=== PATIENT | male | born 1960 | race Caucasian/White ===

== ENCOUNTER 2019-08-07 11:53 | Inpatient (IN) ==
[~2019-08-07 11:53] MED LIST: ZOSYN 3.375 GM in NS 50 ML IV ONE
[2019-08-07 13:25] LABS: URINE SOURCE CLEAN CATCH
[2019-08-07 13:31] LABS: BILIRUBIN URINE NEGATIVE (NEGATIVE); BLOOD URINE NEGATIVE (NEGATIVE); COLOR YELLOW; GLUCOSE URINE NEGATIVE (NEGATIVE); KETONE URINE 20 mg/dL (NEGATIVE); LEUKOCYTES URINE NEGATIVE (NEGATIVE); NITRITE URINE NEGATIVE (NEGATIVE); PH URINE 6.5; PROTEIN URINE TRACE mg/dL (NEGATIVE); TURBIDITY URINE CLEAR (CLEAR); UR EPITHELIAL CELLS <10 /HPF (<10); URINE BACTERIA NEGATIVE /HPF; URINE RBC <10 /HPF (<10); URINE WBC <10 /HPF (<10); UROBILINOGEN URINE 4 mg/dL (NORMAL)
[2019-08-07 13:49] LABS: BASO# 0.06 X1000 (0.0-0.2); BASO% 0.5 % (0.0-0.8); EOS# 0.02 X1000 (0.0-0.7); EOS% 0.2 % (0.0-10.0); HEMATOCRIT 44.4 % (42.0-52.0); HEMOGLOBIN 14.5 g/dL (14.0-18.0); IMM GRAN# 0.02 X1000 (0.0-0.04); IMM GRAN% 0.2 % (0.0-0.5); LYMPH# 0.82 X1000 (1.2-3.4); LYMPH% 6.3 % (20.5-51.1); MCH 27.7 PG (27-31); MCHC 32.7 g/dL (33-37); MCV 84.9 FL (81-99); MONO# 0.52 X1000 (0.11-0.59); MPV 10.2 FL (7.4-10.4); NEUT# 11.48 X1000 (1.4-6.5); NEUT% 88.8 % (42.2-75.2); PLT 252 X1000 (130-400); RBC 5.23 XMIL (4.7-6.1); RDW 13.6 % (11.5-14.5); WBC 12.92 X1000 (4.8-10.8)
[2019-08-07 14:04] LABS: AGAP 9; ALB/GLOB RATIO 1.5; ALBUMIN 4.1 g/dL (3.5-5.0); ALKALINE PHOSPHATASE 73 U/L (32-122); AMYLASE 56 U/L (20-200); BUN 18 mg/dL (8-22); CALCIUM 9.1 mg/dL (8.8-10.2); CHLORIDE 103 mmol/L (98-107); COSMO 281; CREATININE 1.1 mg/dL (0.7-1.2); ESTIMATED GFR > 60; GLUCOSE 135 mg/dL (70-104); GOT 16 U/L (10-34); GPT 17 U/L (10-44); LIPASE 20 U/L (13-60); POTASSIUM 4.4 mmol/L (3.5-5.1); SODIUM 139 mmol/L (136-145); TCO2 27 mmol/L (25-35); TOTAL BILIRUBIN 0.26 mg/dL (0.20-1.00); TOTAL PROTEIN 6.9 g/dL (6.3-8.3)
[2019-08-07] MEDS ORDERED: ZOFRAN IV ONE (14:25)
[2019-08-07] MEDS ORDERED: DILAUDID IV ONE (14:25)
[2019-08-07] MEDS ORDERED: NS 1,000 ML IV ONE (14:27)
--- NOTE | 2019-08-07 15:07 | Diag Imaging Result Doc PS360 ---
CT ABD/PELVIS W/IV CONT ONLY - 08/07/2019 INDICATION: abdo pain COMPARISON: None FINDINGS: The lung bases are clear and the heart size is normal. There is a relatively large rim calcified gallstone in the gallbladder. This measures 3 x 2.3 cm. There is some questionable gallbladder wall thickening. No biliary dilation. All the other abdominal organs are normal. There is significant diverticulosis of the descending and sigmoid colon. No bowel obstruction or inflammation. Normal appendix. Urinary bladder, prostate, and rectum are normal. Bones are intact and well mineralized. IMPRESSION: 1. Large gallstone in the gallbladder. Questionable gallbladder wall thickening. Recommend a gallbladder ultrasound. 2. Diverticulosis coli. This exam was performed using automated exposure control, adjustment of mA or kV according to patient size, and/or use of iterative reconstruction technique Electronically signed by Garry Ruiz 08/07/2019 3:04 PM
--- NOTE | 2019-08-07 15:52 | Diag Imaging Result Doc PS360 ---
US GB < RUQ (LIMITED) - 08/07/2019 INDICATION: RUQ pain TECHNIQUE: Jarrett scale, color Doppler, and duplex evaluation of the abdomen was performed. Standard protocol. COMPARISON: None FINDINGS: The liver appears normal in size and echotexture. No focal masses are appreciated. The IVC and aorta appear normal. The pancreas is unremarkable. The gallbladder contains layering sludge and multiple gallstones including nonmobile a 1.6 cm stone within the gallbladder neck. No sonographic Al's sign was elicited. No pericholecystic fluid or gallbladder wall thickening.. The common bile duct measures 4 mm. The portal vein is patent with hepatopetal flow. The right kidney appears normal. There is no hydronephrosis. IMPRESSION: Cholelithiasis and gallbladder sludge including a nonmobile 1.6 cm calculus within the gallbladder neck. No sonographic evidence for acute cholecystitis. Electronically signed by Brooklyn Amaral 08/07/2019 3:49 PM
--- NOTE | 2019-08-07 16:50 | PROVIDER DOCUMENTATION ---
This chart was entered by Tiarra Ordoñez Scribe, acting as scribe for Buck Euceda MD. HPI-Abdominal Pain/GI Problem - General Chief Complaint: Abdominal Pain Stated Complaint: VOMITING BACK STOMACH PAIN Time Seen by Provider: 08/07/19 14:09 Source: patient Allergies/Adverse Reactions: Patient Allergies Allergy/AdvReac Type Severity Reaction Status Date / Time No Known Allergies Allergy Verified 08/07/19 15:39 Home Medications: Home Medication List Medication Instructions Recorded Confirmed Last Taken Type NK [No Home Medications] 08/07/19 08/07/19 Unknown History - History of Present Illness-ABD Nature of Presenting Problems: 59 yowm presents to the ed with c/o abdominal pain. pt was seen recently and told to f/u due to gallstone but never f/u. pt sts woke this am with severe abd pain with n/v x6 Abdominal Pain Onset Location: reports: RUQ, RLQ Quality of Pain: reports: aching Severity in ED: reports: moderate Onset/Duration: reports: this morning (but had similar episode recently) Timing: reports: still present Activities at Onset: reports: eating Exposure to sick contacts?: No Modifying Factors: worse with: eating Associated Symptoms: reports: nausea, vomiting. denies: back/neck pain, chest pain, diaphoresis, diarrhea, fever/chills, shortness of breath Last BM: last night Dark Stools Present?: reports: none noticed Rectal Bleeding: reports: none # of Diarrhea Episodes: 0 Rectal Pain: reports: none # of Vomiting Episodes: 6 Emesis Description: reports: other (yellow) Bruising or Bleeding Gums?: No Similar Symptoms Previously?: Yes Recently seen or treated by another doctor?: Yes (er ) Review of Systems - Adult - REVIEW OF SYSTEMS - ADULT Constitutional: denies: chills, fever Eyes: reports: no symptoms reported Ears, Nose, Mouth & Throat: reports: no symptoms reported Cardiovascular: denies: chest pain, palpitations Respiratory: denies: shortness of breath, wheezing Gastrointestinal: reports: see HPI, abdominal pain, nausea, vomiting. denies: diarrhea Genitourinary: reports: no symptoms reported Musculoskeletal: denies: back pain, neck pain Integumentary: reports: no symptoms reported Neurological: reports: no symptoms reported Psychiatric: reports: no symptoms reported Endocrine: reports: no symptoms reported Hematologic/Lymphatic: reports: no symptoms reported Allergic/Immunologic: reports: no symptoms reported All Other Systems: Reviewed and Negative Past History - Adult - PAST MEDICAL HISTORY-ADULT Review of Records: reports: Old Records Reviewed, Nursing Assessment Review, Medications Reviewed, Social history reviewed & non-contributory. Major Childhood Illnesses: reports: denies history Cardiovascular: reports: CAD, HTN Respiratory: reports: denies history Gastrointestinal: reports: GERD, other (gallstone) Genitourinary: reports: denies history Musculoskeletal: reports: denies history Neurological: reports: denies history Endocrine/Immune: reports: denies history Other Conditions: reports: denies history - PRIOR SURGERIES/PROCEDURES Surgical/Procedure History: reports: reviewed, not pertinent - IMMUNIZATION STATUS Childhood Immunizations: See Nurse Assessment Flu Vaccine: See Nurse Assessment - FAMILY HISTORY Family History: reviewed, not pertinent - SOCIAL HISTORY Smoking: denies Substance Use: denies Living Situation: family Physical Exam-General - PHYSICAL EXAM-ADULT Initial Vital Signs Reviewed: Yes - CONSTITUTIONAL General Appearance: alert, mild distress - EYES Eyes: PERRL/EOMI, pink conjunctivae - HEAD, EARS, NOSE, MOUTH & THROAT HENMT: moist mucous membranes - NECK Neck: non-tender, full range of motion, supple - RESPIRATORY Respiratory: chest non-tender, lungs clear, normal breath sounds - CARDIOVASCULAR Cardiovascular: normal peripheral pulses, bradycardia (56) - CHEST (BREASTS) Chest/Breast: deferred - GASTROINTESTINAL (ABDOMEN) Abdominal Exam: soft, guarding, tenderness (RUQ RLQ), Al's sign - GENITOURINARY Male Genitalia: deferred Rectal Exam: deferred Hemoccult Exam: deferred - MUSCULOSKELETAL Back Exam: normal inspection, no CVA tenderness, no vertebral tenderness Extremity: normal range of motion, non-tender, normal gait, normal inspection - SKIN Integumentary: normal color, normal turgor, warm/dry - NEUROLOGIC Neurologic: grossly normal - PSYCHIATRIC Psych/Mental Status: normal mood/affect, normal thought content, normal thought process, oriented x 3 Progress - PLAN OF CARE/RESULTS Progress/Plan/Lab Results: Vital Signs - 8 hr 08/07/19 12:06 08/07/19 13:36 Temperature 97.8 F Pulse Rate 56 L 41 L Respiratory Rate 16 14 Blood Pressure 188/97 190/88 O2 Sat by Pulse Oximetry 99 100 Laboratory Results - last 24 hr 08/07/19 08/07/19 08/07/19 13:10 13:35 13:35 WBC 12.92 H RBC 5.23 Hgb 14.5 Hct 44.4 MCV 84.9 MCH 27.7 MCHC 32.7 L RDW Std Deviation 13.6 Plt Count 252 MPV 10.2 Immature Gran % (Auto) 0.2 Neut % (Auto) 88.8 H Lymph % (Auto) 6.3 L [place] % (Auto) 4.0 Eos % (Auto) 0.2 Baso % (Auto) 0.5 Immature Gran # (Auto) 0.02 Neut # (Auto) 11.48 H Lymph # (Auto) 0.82 L [place] # (Auto) 0.52 Eos # (Auto) 0.02 Baso # (Auto) 0.06 Sodium 139 Potassium 4.4 Chloride 103 Carbon Dioxide 27 Anion Gap 9 BUN 18 Creatinine 1.1 Estimated GFR/1.73 m2 > 60 BUN/Creatinine Ratio 16 Glucose 135 H Calculated Osmolality 281 Calcium 9.1 Total Bilirubin 0.26 AST 16 ALT 17 Alkaline Phosphatase 73 Total Protein 6.9 Albumin 4.1 Globulin 2.8 Albumin/Globulin Ratio 1.5 Amylase 56 Lipase 20 Urine Source CLEAN CATCH Urine Color YELLOW Urine Turbidity CLEAR Urine pH 6.5 Ur Specific [place] 1.030 Urine Protein TRACE A Ur Glucose (Stick) NEGATIVE Ur Ketones (Stick) 20 A Urine Blood NEGATIVE Urine Nitrite NEGATIVE Urine Bilirubin NEGATIVE Urobilinogen Dipstick 4 A Urine Leukocytes NEGATIVE Urine WBC (Auto) <10 Urine RBC (Auto) <10 U Epithel Cells (Auto) <10 Urine Bacteria (Auto) NEGATIVE Orders Category Date Time Status Saline Loc DIRECTED Care 08/07/19 12:10 Active NPO Diet 08/07/19 12:[address] ABD/PELVIS W/IV CONT ONLY [CT] Stat Exams 08/07/19 14:09 Ordered US GB < RUQ (LIMITED) [US] Stat Exams 08/07/19 14:09 Ordered AMYLASE [CHEM] Stat Lab 08/07/19 13:35 Completed CBC WITH ELECTRONIC DIFF [HEME] Stat Lab 08/07/19 13:35 Completed COMPREHENSIVE METABOLIC PANEL [CHEM] Stat Lab 08/07/19 13:35 Completed LIPASE [CHEM] Stat Lab 08/07/19 13:35 Completed TROPONIN T HIGH SENSITIVITY Stat Lab 08/07/19 14:26 Uncollected URINALYSIS W/POSS RFLX CULT [URINALYSIS] Stat Lab 08/07/19 13:10 Completed 0.9% Sodium Chloride Inj [Ns] 1,000 ml Med 08/07/19 14:27 Active IV 999 mls/hr Hydromorphone [Dilaudid] Med 08/07/19 14:25 Discontinued 1 mg IV NOW ONE Ondansetron [Zofran] Med 08/07/19 14:25 Discontinued 4 mg IV NOW ONE Result Diagrams: 08/07/19 13:35 08/07/19 13:35 - REASSESSMENT Reassessment #1 Time Reassessed: 16:02 Status: improving Reassessment #2 Time Reassessed: 16:34 (pt will go to sx with dr kingston) Status: unchanged Reassessment Comment: last meal this am for breakfast - CT/MRI 1 CT Study: Abdomen, Pelvis Impression: See EMR Report (CT ABD/PELVIS W/IV CONT ONLY - 08/07/2019 INDICATION: abdo pain COMPARISON: None FINDINGS: The lung bases are clear and the heart size is normal. There is a relatively large rim calcified gallstone in the gallbladder. This measures 3 x 2.3 cm. There is some questionable gallbladder wall thickening. No biliary dilation. All the other abdominal organs are normal. There is significant diverticulosis of the desc ending and sigmoid colon. No bowel obstruction or inflammation. Normal appendix. Urinary bladder, prostate, and rectum are normal. Bones are intact and well mineralized. IMPRESSION: 1. Large gallstone in the gallbladder. Questionable gallbladder wall thickening. Recommend a gallbladder ultrasound. 2. Diverticulosis coli. This exam was performed using automated exposure control, adjustment of mA or kV according to patient size, and/or use of iterative reconstruction technique Electronically signed by Garry Ruiz 08/07/2019 3:04 PM 08/07/19 1503 Interpreting Physician: Garry Ruiz MD Dictated Date/Time: 08/07/19 1502 cc: Buck Euceda MD; None,PCP) - CONSULTS/PCP/HOSPITALIST Notification #1 *Consult/PCP/Hospitalist*: dr kingston sx Time Discussed: 16:33 Reason/Comments: phone consult, asked for Zosyn Consult Disposition: Admit Departure - Departure Date of Disposition Decision: 08/07/19 Time of Disposition Decision: 16:49 DIAGNOSIS: Cholecystitis, Cholelithiasis Disposition: ADMITTED INPATIENT 09 Certified Medical Emergency: Emergent Condition: Fair Referrals and Follow-Ups: None,PCP [Primary Care Provider] - - Critical Care Note This patient required my direct & personal management of CC.: No Attestation - Physician/ CHANEL Attestation Patient care was provided by Advanced Practice Provider:: No The physician spent face to face time with patient:: Yes Advanced Practice Provider documentation review:: Supervising physician onsite and consulted in the evaluation and care of this patient. The physician did have a face to face encounter with the patient. This chart was documented by the indicated scribe, (Tiarra Ordoñez Scribe) and accurately reflects the services I performed and decisions made by me, Buck Euceda MD, as attested by the provider's signature.
[2019-08-07] MEDS ORDERED: ZOSYN 3.375 GM in NS 50 ML IV ONE ×2 (16:51→20:00)
[2019-08-07] MEDS ORDERED: DILAUDID IM PRN (17:43)
[2019-08-07] MEDS ORDERED: DILAUDID IV PRN (17:56)
[2019-08-07] MEDS: ZOFRAN IV PRN ×2 (18:25→23:57)
[2019-08-07] MEDS: MORPHINE IV PRN (18:25)
[2019-08-07] MEDS: LR 1,000 ML IV SCH (21:06)
--- NOTE | 2019-08-07 22:54 | HISTORY AND PHYSICAL ---
ADMITTING DIAGNOSIS: Cholecystitis. HISTORY OF PRESENT ILLNESS: A 59-year-old gentleman presenting with abdominal pain, nausea, and vomiting starting this morning, epigastric and right upper quadrant. He has never had pain like this before. He had a CT scan done in the emergency department that showed possible cholecystitis and ultrasound that showed possible cholecystitis. He has been admitted and started on antibiotics. The pain medicine has made it a little bit better since he has been admitted. PAST MEDICAL HISTORY: History of gallstones. PAST SURGICAL HISTORY: None. SOCIAL: Nonsmoker. HOME MEDICATIONS: None. ALLERGIES: None. FAMILY HISTORY: Reviewed with the patient and noncontributory. REVIEW OF SYSTEMS: A full 14 systems reviewed are negative except those specified in HPI. PHYSICAL EXAMINATION: VITAL SIGNS: Patient is currently afebrile. His vital signs are stable. GENERAL: No acute distress. Resting comfortably. male, looks stated age. HEENT: Normocephalic, atraumatic. Pupils equal, round, reactive to light. Mucous membranes moist. Oropharynx benign. NECK: Supple. Trachea midline. CARDIOVASCULAR: Regular rate and rhythm. LUNGS: Grossly clear. ABDOMEN: Soft tender to palpation in the right upper quadrant and epigastric. No peritoneal signs. EXTREMITIES: Moves all extremities. NEUROLOGIC: Grossly intact. SKIN: No signs of jaundice. VASCULAR: All extremities perfused. LABORATORY: Reviewed. Of note his white blood cell count of slightly elevated. Bilirubin, AST, ALT and alkaline phosphatase are all normal. CT scan independently reviewed, ultrasound independently reviewed and noted above. ASSESSMENT AND PLAN: A 59-year-old with possible cholecystitis. Cholecystitis. At this time, we will plan on admission. We will give him IV fluids and antibiotics. We will resuscitate him through the night and plan on surgical intervention in the morning. Discussed with him the risks, benefits, and alternatives of laparoscopic cholecystectomy. The risks including, but not limited to bleeding, infection, risk of anesthesia, risk of common bile duct injury and bile leak, and risk of injury to other organs discussed the patient. He voiced understanding wished to proceed with the procedure. We will plan on doing it tomorrow. cc: Jg Wade MD
[2019-08-07] MEDS ORDERED: PROTONIX IV SCH (23:45)
[2019-08-07] MEDS ORDERED: SODIUM CHLORIDE 0.9% INJ SCH (23:45)
[2019-08-07] MEDS: ZOSYN 2.25 GM in NS 50 ML IV SCH (23:58)
[2019-08-07] MEDS: APRESOLINE IV SCH (23:58)
[2019-08-08] MEDS: MORPHINE IV PRN (00:26)
[2019-08-08] MEDS: APRESOLINE IV SCH ×2 (05:45→12:02)
[2019-08-08] MEDS: ZOSYN 2.25 GM in NS 50 ML IV SCH ×2 (07:06→12:12)
[2019-08-08] MEDS: LR 1,000 ML IV SCH (07:09)
[2019-08-08 07:27] LABS: BASO# 0.04 X1000 (0.0-0.2); BASO% 0.3 % (0.0-0.8); EOS# 0.01 X1000 (0.0-0.7); EOS% 0.1 % (0.0-10.0); HEMOGLOBIN 13.9 g/dL (14.0-18.0); IMM GRAN# 0.03 X1000 (0.0-0.04); IMM GRAN% 0.2 % (0.0-0.5); LYMPH# 1.18 X1000 (1.2-3.4); LYMPH% 8.3 % (20.5-51.1); MCH 27.6 PG (27-31); MCHC 32.3 g/dL (33-37); MCV 85.3 FL (81-99); MONO# 1.04 X1000 (0.11-0.59); MONO% 7.3 % (1.7-9.3); MPV 10.6 FL (7.4-10.4); NEUT# 11.91 X1000 (1.4-6.5); NEUT% 83.8 % (42.2-75.2); PLT 237 X1000 (130-400); RBC 5.04 XMIL (4.7-6.1); RDW 13.7 % (11.5-14.5); WBC 14.21 X1000 (4.8-10.8)
[2019-08-08 07:31] LABS: INR 1.03; PROTIME 13.6 Seconds (11.0-16.0)
--- NOTE | 2019-08-08 07:51 | CONSULTATION ---
DATE OF CONSULTATION: 08/07/2019 PRIMARY CARE PHYSICIAN: Julio Cesar Ramirez MD of [place], [place]. CONSULTING SURGEON: Dr. Jg Wade. REASON FOR CONSULTATION: Medical management. HISTORY OF PRESENT ILLNESS: Mr. Hernandez is a 59-year-old, male, who presents today to with past medical history of hypertension, bradycardia, and jonathan cone dystrophy. The patient presents to the ER today, states that he did wake up this morning with severe epigastric pain, nausea, vomiting, mild chest pain, and chills. The patient states he vomited greater than 6 times. He subsequently decided to come to the ER at this time. The patient states he was recently diagnosed with gallstones greater than 1 month ago. The patient does deny any cough, congestion, headaches, dizziness, excessive thirst, dysuria, palpitations, orthopnea, PND, dyspnea, melena, diarrhea, constipation, dysuria, hematuria, muscle pain or weakness, syncope, or any other pertinent symptoms at this time. REVIEW OF SYSTEMS: A 10 point review of systems has been obtained and all are negative except what is stated above in the HPI. PAST MEDICAL HISTORY: 1. Hypertension. 2. Bradycardia. 3. Jonathan cone dystrophy. PAST SURGICAL HISTORY: 1. Left wrist surgery. 2. Tonsillectomy. FAMILY HISTORY: Mother has diabetes. Father has prostate cancer and some type of lymphoma. Patient does have a significant history of thyroid disease in his family history. SOCIAL HISTORY: The patient does live in [place], [place]. He is here visiting some family members for a . 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 He just recently started smoking 4 to 5 years ago, and he smokes 3/4 pack of cigarettes per day. He does drink occasional alcohol. He denies any illicit drug use. He denies the use of cane or a walker, CPAP or BiPAP use. ALLERGIES: No known drug allergies. HOME MEDICATIONS: Vitamin B12, unknown amount daily. PHYSICAL EXAMINATION: Vital Signs: Temperature 98.4 degrees, pulse rate 48, respiratory rate 20, blood pressure 198/90, O2 saturation 96% on room air. General: This is a 59-year-old, male. He is lying in the hospital bed. He is well nourished and well developed. He is in no acute distress at present time. HEENT: Atraumatic, normocephalic. Pupils equal, round, react to light. Mucous membranes are dry. Neck: Supple. No lymphadenopathy. Trachea midline. No JVD. CV: Regular rate and rhythm. No murmurs, gallops, or rubs appreciated. Respiratory: Lung sounds clear. Equal chest excursion. Respirations nonlabored. No accessory muscle usage. GI: Abdomen is tender. It is nondistended. Bowel sounds are present x4. : No CVA tenderness noted. The patient is voiding without difficulty. Neurologic: The patient is awake, alert, and oriented, able to follow all my commands appropriately. Musculoskeletal: Full distal strength noted. No abnormalities. No deformities. Extremities: No clubbing, no cyanosis, no edema. DP and PT pulses are present and palpable. Skin: Warm, dry, and intact. No rashes. No bruises. No diaphoresis. LABORATORY AND DIAGNOSTIC DATA: White blood cell count 12.92, hemoglobin 14.5, hematocrit 44.4, platelet count 252,000. Sodium 139, potassium 4.4, BUN is 18, creatinine 1.1, glucose 135. Amylase 56, lipase 20. Alkaline phosphatase 73. CT of the abdomen and pelvis does show a large gallstone in the gallbladder. It shows questionable gallbladder wall thickening, and does show diverticulosis in the coli. Ultrasound of the gallbladder does show cholelithiasis and gallbladder sludge, including a nonmobile, 1.6 cm calculus within the gallbladder neck, and does show acute cholecystitis. ASSESSMENT: 1. Acute cholelithiasis. 2. Acute cholecystitis. 3. Leukocytosis. 4. Bradycardia, chronic. 5. Hypertension, chronic. 6. Tobacco dependency. PLAN: We have been consulted on this patient for medical management. The patient is going to be taken to the OR by Dr. Wade tomorrow for cholecystectomy. Dr. Wade has ordered IV fluid hydration on this patient. The patient was given Zosyn in the ER. We will continue Zosyn every 6 hours. Will provide the patient with Zofran and morphine p.r.n. We will keep the patient n.p.o. for now. The patient does have an elevated white blood cell count. This is likely secondary to his acute cholecystitis. We will repeat his labs in the morning. The patient does have a low heart rate of 40. The patient states this is a normal heart rate for him. He runs anywhere between 60s and 40s. We will check a TSH level on this patient. The patient states that he does not take any hypertension medications. However, he is in some pain at this time. We will provide him with some p.r.n. hydralazine, and like I said, p.r.n.morphine for his pain. I did counseling aide this patient on smoking cessation for greater than 5 minutes. I will provide this patient with SCDs and TEDs for DVT prophylaxis. The patient is on die casting machine operator. All other further recommendations pending hospital course and laboratory data. I want to thank you for this consultation. Dictated by SHERLY Hernandez for Ariel Cobos MD cc: MD Jg Hensley MD Vartan Karakossian, MD Addendum Discussed plan of care with IDENTITY MANAGEMENT DEVELOPER and patient. Going forward, will prefer to keep patient on Hydralazine (has added benefit of reflex tachycardia) vs. Norvasc for BP control. Pt's perioperative risk is normal and can proceed with surgery above. MTDD
[2019-08-08 07:57] LABS: AGAP 10; BUN 12 mg/dL (8-22); CALCIUM 8.9 mg/dL (8.8-10.2); CHLORIDE 100 mmol/L (98-107); COSMO 275; CREATININE 1.1 mg/dL (0.7-1.2); ESTIMATED GFR > 60; GLUCOSE 121 mg/dL (70-104); POTASSIUM 4.3 mmol/L (3.5-5.1); SODIUM 137 mmol/L (136-145); TCO2 27 mmol/L (25-35)
--- NOTE | 2019-08-08 10:29 | GENERAL SURGERY PROGRESS NOTE ---
DATE: 08/08/2019 SUBJECTIVE: The patient seems to be doing about the same. OBJECTIVE: Vital Signs: Patient is currently afebrile. Vital signs stable. He did have hypertension. We got the Hospitalists involved. General: No acute distress. Cardiovascular: Regular rate and rhythm. Lungs: Grossly clear. Abdomen: Soft, tender to palpation in the right upper quadrant. Extremities: Moves all extremities. Neurologic: Grossly intact. Skin: No signs of jaundice. Vascular: All extremities perfused. LABORATORY DATA: None this morning. ASSESSMENT AND PLAN: A 59-year-old gentleman with cholecystitis. 1. Cholecystitis. At this point in time, we will plan on surgical intervention discussed and documented yesterday the risks, benefits, alternatives. We will plan on surgical intervention today. 2. Hypertension. At this time, Hospitalists were consulted. We will follow with their recommendation. cc: MD Jeet Last MD
[2019-08-08] MEDS: ZOFRAN IV PRN (11:28)
[2019-08-08] MEDS ORDERED: DIPRIVAN 1% ONE (12:34)
[2019-08-08] MEDS ORDERED: FENTANYL ONE (12:34)
[2019-08-08] MEDS ORDERED: VERSED ONE (12:34)
[2019-08-08] MEDS ORDERED: LR 1,000 ML ONE (13:47)
[2019-08-08] MEDS ORDERED: SODIUM CHLORIDE 0.9% ONE (13:47)
[2019-08-08] MEDS ORDERED: MARCAINE 0.25% PF ONE (13:47)
--- NOTE | 2019-08-08 17:43 | OPERATIVE NOTE ---
PROCEDURE DATE: 08/08/2019 PREOPERATIVE DIAGNOSIS: Acute cholecystitis. POSTOPERATIVE DIAGNOSIS: Acute cholecystitis. PROCEDURE: Laparoscopic cholecystectomy. SURGEON: Jg Wade MD. INVENTORY TRANSCRIBER: Dr. Romero. Dr. Romero assisted with the entirety of the case. His presence was crucial for the completion of the case. ANESTHESIA: General endotracheal. OPERATIVE FINDINGS: Acute cholecystitis. COMPLICATIONS: None at time of dictation. ESTIMATED BLOOD LOSS: 10 mL. SPECIMENS REMOVED: Gallbladder. BRIEF HISTORY: A 59-year-old gentleman who presented with right upper quadrant epigastric pain. It is felt that it is cholecystitis. The risks, benefits, and alternatives for the cholecystectomy discussed. All questions answered. DESCRIPTION OF PROCEDURE: After informed consent was obtained, the patient was brought to the operative theatre, transferred to the operating table and placed in the supine position. General endotracheal anesthesia was then performed without complication. A formal time-out was then performed confirming patient, date, and procedure. All were in agreement. At that time, attention was given to the abdomen. An infraumbilical incision was made through which using Optiview technique we inserted the 11 mm trocar connected to insufflation. Pneumoperitoneum was achieved under direct visualization, we placed 3 more trocars, all 5 mm, 1 subxiphoid, 2 in the right upper quadrant. Using these, gallbladder was identified and retracted cephalad. We were able to dissect out the cystic duct and cystic artery to achieve the critical view of safety. We doubly clipped and ligated it. We then dissected the gallbladder off the gallbladder fossa using electrocautery, placed into an EndoCatch and brought it out the infraumbilical incision which had to be enlarged to accommodate the stone burden. We then irrigated out the abdomen until the suction fluid was clear. We removed all trocars, disconnected insufflation. Pneumoperitoneum was released. All skin incisions closed with 4-0 Monocryl after we closed the fascia with 2 figure-of- eight of #0 Vicryl. The patient tolerated the procedure well. There were no family members immediately available to discuss the postop case, but I think he can be able to be discharged home. We will have the hospitalist evaluate for his home medications for potential hypertension. cc: MD Jeet Last MD
[2019-08-08 18:01] VITALS: BP 126/65
--- NOTE | 2019-08-08 18:01 | PROGRESS NOTE ---
DATE: 08/08/2019 Mr. Hernandez came in on 08/07/2019. He had history of cholecystitis. A 59-year-old gentleman presented with abdominal pain, nausea, vomiting starting in the morning, epigastric and right upper quadrant pain. He has never had pain like this before. CT scan was done in the emergency room and showed possible cholecystitis. An ultrasound showed possible cholecystitis. He was admitted and started on some antibiotics. He has a history of gallstones. Really no surgical history. He said he took blood pressure medicines years ago, but he would really like to stay off it if he could. He underwent a laparoscopic cholecystectomy and he had acute cholecystitis. [place] he could go home on 08/08/2019. Home medications, he was on anything today. His blood pressures throughout the course of his hospitalization, he had 190/88, 159/89, 128/81, so he may have been having higher blood pressure because of the pain. I told him to get some blood checks and blood pressures and bring them into his primary care and they could decide on blood pressure medicine. He did not want to start 1 at this point. He will be discharged home. We can give him something for pain at home. We will give him some [place] 10 mg 1 q.6 hours, I gave him about 12 of those. cc: Jete Gutierrez MD
[2019-08-08] MEDS ORDERED: PERIDEX MT SCH (21:00)
== END 2019-08-08 18:42 | disposition home or self-care (01) | DRG 419 ==
LOC: ED 11:53 → 4N 17:22
PROVIDERS: ADMIT Emergency Medicine; ATTEND Surgery